=== PATIENT | female | born 2000 | race Caucasian/White ===

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

== ENCOUNTER 2021-06-16 21:39 | Emergency (ER) | payer OTHER | END 2021-06-16 22:17 | disposition other institution (70) | LOC: ER1 21:39 | DX: M54.5 Low back pain (principal); M54.2 Cervicalgia; V49.9XXA Car occupant (driver) (passenger) injured in unspecified traffic accident, initial encounter | CPT/HCPCS: 84703; 99284 ==